=== PATIENT | female | born 1945 | race Caucasian/White ===

== ENCOUNTER 2023-05-16 15:40 | Outpatient (CLI) | payer MEDICARE, SELFPAY | END 2023-05-16 15:41 | disposition home or self-care (01) | LOC: AMB 05-20 15:33 | PROVIDERS: PCP Family Medicine; Visit Provider Family Medicine | DX: R55 Syncope and collapse (principal) | CPT/HCPCS: A0425; A0427 ==

== ENCOUNTER 2024-08-09 11:36 | Outpatient (CLI) | payer MEDICARE, SELFPAY | END 2024-08-09 11:37 | disposition home or self-care (01) | LOC: AMB 08-10 12:00 | PROVIDERS: PCP Family Medicine; Visit Provider Family Medicine | DX: R53.1 Weakness (principal) | CPT/HCPCS: A0425; A0433 ==